=== PATIENT | male | born 1975 | race Caucasian/White ===

== ENCOUNTER → 2017-05-12 | Outpatient (CLI) | payer SELFPAY ==
[~2017-05-12] MED LIST: ALEVE220 MG PO; B12,B-12,B 12500 MC1 PO; DOXYCYCLINE100 M3 PO; LEVAQUIN750 MG PO; LISINOPRIL5 MG PO; LOPRESSOR25 MG PO; MOTRIN800 MG PO; NATURE'S BLEND F1 MG PO; PREDNICOT20 MG PO; PROVENTIL0.09 MG/AC IH; SEPTRA DS 800 M1 TAB PO; ZITHROMAX250 MG PO
== END | disposition home or self-care (01) ==
LOC: RESCLI 09:38
DX: Z20.818 Contact with and (suspected) exposure to other bacterial communicable diseases (principal)

== ENCOUNTER → 2018-07-19 | Outpatient (CLI) | payer SELFPAY ==
--- NOTE | ~2018-07-19 | EKG ---
[place], [place] ELECTROCARDIOGRAM REPORT NAME: TIM CINTRON UNIT #: [id number] ROOM: DOCTOR: EPIPHANY DRAFT REPORT BIRTHDATE: [birth year] [facility] Test Date: 2018-07-19 Test Time: 10:35:52 Pat Name: TIM CINTRON Department: Room: Gender: M Real Property Appraiser: Zakiya Faria : 1975 Requested By: JOSESITO LOJA Order Number: [id number] Reading MD: Josesito Loja MD Measurements Intervals Downs Rate: 77 P: 41 DC: 153 QRS: 66 QRSD: 97 T: 67 QT: 385 QTc: 436 Interpretive Statements Sinus rhythm Minimal ST depression, inferior leads Borderline ST elevation, anterior leads Electronically Signed On 07-19-2018 7:48:41 PDT by Josesito Loja MD CM:EKGRPT:ELECTROCARDIOGRAM REPORT [id number] JOSESITO LOJA MD EPIPHANY DRAFT REPORT JOSESITO LOJA MD
== END | disposition home or self-care (01) ==
LOC: RESCLI 00:54
DX: I10 Essential (primary) hypertension (principal); J30.2 Other seasonal allergic rhinitis; M94.0 Chondrocostal junction syndrome [Tietze]; R94.31 Abnormal electrocardiogram [ECG] [EKG]; Z71.6 Tobacco abuse counseling; Z79.899 Other long term (current) drug therapy; Z79.82 Long term (current) use of aspirin; Z88.8 Allergy status to other drugs, medicaments and biological substances

== ENCOUNTER → 2018-07-28 | Outpatient (CLI) | payer SELFPAY | END | disposition home or self-care (01) | LOC: CARD 07-27 09:00 | DX: R07.89 Other chest pain (principal) ==

== ENCOUNTER → 2018-09-07 | Outpatient (CLI) | payer SELFPAY | END | disposition home or self-care (01) | LOC: RESCLI 13:47 | DX: I10 Essential (primary) hypertension (principal); J30.2 Other seasonal allergic rhinitis; R07.89 Other chest pain; M94.0 Chondrocostal junction syndrome [Tietze]; R94.31 Abnormal electrocardiogram [ECG] [EKG]; T14.8XXA Other injury of unspecified body region, initial encounter; F17.200 Nicotine dependence, unspecified, uncomplicated; Z71.6 Tobacco abuse counseling; Z79.899 Other long term (current) drug therapy; Z79.82 Long term (current) use of aspirin; Z88.8 Allergy status to other drugs, medicaments and biological substances; X58.XXXA Exposure to other specified factors, initial encounter; Y93.89 Activity, other specified; Y92.89 Other specified places as the place of occurrence of the external cause; Y99.8 Other external cause status ==

== ENCOUNTER → 2018-10-27 | Outpatient (CLI) | payer SELFPAY | END | disposition home or self-care (01) | LOC: RESCLI 09:16 | DX: H61.23 Impacted cerumen, bilateral (principal); I10 Essential (primary) hypertension; Z88.8 Allergy status to other drugs, medicaments and biological substances; Z79.899 Other long term (current) drug therapy ==

== ENCOUNTER → 2019-12-26 | Outpatient (CLI) | payer SELFPAY ==
[~2019-12-26] MED LIST changes: +HYDR12.5C PO; +LISINOPRIL10 M1 PO; +LISINOPRIL20 MG PO; -LISINOPRIL5 MG PO; +TYLENOL EXTRA500 MG PO
== END | disposition home or self-care (01) ==
LOC: RESCLI 10:09
DX: R68.89 Other general symptoms and signs (principal); Z79.899 Other long term (current) drug therapy; Z88.8 Allergy status to other drugs, medicaments and biological substances

== ENCOUNTER 2019-12-29 07:55 | Inpatient (IN) | payer SELFPAY ==
[2019-12-29] VITALS (12 sets, daily range): BP systolic 130–191; BP diastolic 79–100
[~2019-12-29 07:55] MED LIST changes: -HYDR12.5C PO; -LISINOPRIL10 M1 PO; -TYLENOL EXTRA500 MG PO
[2019-12-29 08:47] LABS: BASO % 0.3 % (0.0-1.0); EOS # 0.3 10*3/uL (0.0-0.4); EOS % 2.1 % (1.0-4.0); LYMPH # 2.1 10*3/uL (1.3-4.4); LYMPH % 16.5 % (27.0-41.0); MEAN CELL VOLUME 86.5 fl (80.0-94.0); MEAN CORPUSCULAR HGB 31.6 pg (27.0-31.0); MEAN CORPUSCULAR HGB CONC 36.5 g/dl (33.0-37.0); MEAN PLATELET VOLUME 9.6 fl (9.6-12.3); MONO # 0.8 10*3/uL (0.1-1.0); MONO % 6.3 % (3.0-9.0); NEUT # 9.4 10*3/uL (2.3-7.9); NEUT % 74.5 % (47.0-73.0); PLATELET COUNT AUTOMATED 228 10*3/uL (130-400); RED BLOOD COUNT 6.01 10*6/uL (4.50-5.90); RED CELL DISTRI WIDTH 12.8 % (0-14.5); WHITE BLOOD COUNT 12.6 10*3/uL (4.8-10.8)
[2019-12-29 08:55] LABS: ALBUMIN 3.6 gm/dl (3.1-4.5); ALKALINE PHOSPHATASE 99 U/L (45-117); BUN 10 mg/dl (7-24); CHLORIDE 106 mmol/L (98-107); CREATININE 0.99 mg/dL (0.70-1.30); POTASSIUM 3.6 mmol/L (3.5-5.1); SGOT/AST 20 IU/L (3-35); SGPT/ALT 38 U/L (12-78); SODIUM 137 mmol/L (136-145); TOTAL PROTEIN 7.4 gm/dL (6.4-8.2)
[2019-12-29 09:19] LABS: BILIRUBIN NEGATIVE (NEGATIVE); BLOOD NEGATIVE (NEGATIVE); CLARITY CLEAR (CLEAR); COLOR YELLOW (YELLOW); GLUCOSE NEGATIVE (NEGATIVE); KETONE NEGATIVE (NEGATIVE); LEUKO ESTERASE NEGATIVE (NEGATIVE); NITRITE NEGATIVE (NEGATIVE); UROBILINOGEN 0.2 E.U./dl (0.2-1.0)
--- NOTE | 2019-12-29 15:45 | NUR ---
A 44, admitted to 5E, under the services of FIDELIA Arias DO with a diagnosis of POST OP SBO. Chief complaint is C/O NAUSEA VOMITING AND DIARRHEA AT HOME WORSENING OVER THE PAST 2 DAYS. PT CAME TO ER TODAY AND WAS TAKEN TO OR THEN ADMITTED POST OP. Patient arrived via stretcher from ER. Monitor applied. Initial assessment completed. Vital signs taken and recorded. See assessment for past medical history, medications and allergies. Patient and/or family oriented to unit. [facility] visitation policy reviewed. VALENTIN DAVE
--- NOTE | 2019-12-29 16:38 | NUR ---
Spoke with pt significant other regarding home meds. Called both [facility] and they did not have any current meds for pt. All were outdated. [facility] pharmacy only had a record that was sent to me for tamiflu. Lula states that he takes lisinopril for sure but she will call when she gets home for other meds if any.
--- NOTE | 2019-12-29 17:30 | NUR ---
Suction wall unit changed at this time due to LIS not functioning properly. New unit working as it should.
--- NOTE | 2019-12-29 20:00 | NUR ---
PRN IV MORPHINE GIVEN AT THIS TIME FOR 5/10 ABDOMINAL PAIN FROM SURGERY AND MIDLINE SURGICAL INCISION. PATIENT A&O X3. CALL LIGHT WITHIN REACH. FAMILY AT BEDSIDE. WILL CONTINUE TO MONITOR.
--- NOTE | 2019-12-29 21:00 | NUR ---
PATIENT STATED THAT PAIN WAS NOW A 3/10 AFTER PRN IV MORPHINE. A&O X3, CALL LIGHT WITHIN REACH, WILL CONTINUE TO MONITOR. FAMILY AT BEDSIDE.
--- NOTE | 2019-12-29 21:40 | NUR ---
24 HOUR CHART CHECK COMPLETE
[2019-12-30] VITALS: BP 134/87
--- NOTE | 2019-12-30 00:05 | NUR ---
PRN IV MORPHINE GIVEN AT THIS TIME FOR 4/10 ABDOMINAL PAIN FROM SURGERY. A&O X3, CALL LIGHT WITHIN REACH WILL CONTINUE TO MONITOR.
--- NOTE | 2019-12-30 01:00 | NUR ---
PATIENT STATED THAT PAIN WAS NOW TOLERABLE AT A 1-2 AFTER PRN IV MORPHINE. A&O X3, CALL LIGHT WITHIN REACH WILL CONTINUE TO MONITOR.
--- NOTE | 2019-12-30 04:14 | NUR ---
PRN IV MORPHINE GIVEN AT THIS TIME FOR 4/10 ABDOMINAL PAIN. PATIENT A&O X3, CALL LIGHT WITHIN REACH.
--- NOTE | 2019-12-30 05:15 | NUR ---
PATIENT STATED THAT PAIN WAS NOW A 1-2 OUT OF TEN ON THE PAIN SCALE AFTER PRN IV MORPINE GIVEN. A&O X3 AT THIS TIME, CALL LIGHT WITHIN REACH.
[2019-12-30 07:09] LABS: BASO % 0.2 % (0.0-1.0); EOS # 0.1 10*3/uL (0.0-0.4); EOS % 0.7 % (1.0-4.0); HEMATOCRIT 48.5 % (42.0-52.0); HEMOGLOBIN 17.2 g/dl (14.0-18.0); LYMPH # 2.5 10*3/uL (1.3-4.4); LYMPH % 21.2 % (27.0-41.0); MEAN CELL VOLUME 89.2 fl (80.0-94.0); MEAN CORPUSCULAR HGB 31.6 pg (27.0-31.0); MEAN CORPUSCULAR HGB CONC 35.5 g/dl (33.0-37.0); MONO # 1.4 10*3/uL (0.1-1.0); MONO % 11.9 % (3.0-9.0); NEUT # 7.9 10*3/uL (2.3-7.9); NEUT % 65.7 % (47.0-73.0); PLATELET COUNT AUTOMATED 255 10*3/uL (130-400); RED BLOOD COUNT 5.44 10*6/uL (4.50-5.90); RED CELL DISTRI WIDTH 13.5 % (0-14.5)
[2019-12-30 07:35] LABS: ALBUMIN 3.1 gm/dl (3.1-4.5); BUN 16 mg/dl (7-24); CHLORIDE 108 mmol/L (98-107); CREATININE 0.99 mg/dL (0.70-1.30); POTASSIUM 3.6 mmol/L (3.5-5.1); SGOT/AST 19 IU/L (3-35); SGPT/ALT 33 U/L (12-78); SODIUM 142 mmol/L (136-145)
[2019-12-30 07:43] LABS: ALKALINE PHOSPHATASE 76 U/L (45-117); CHOLESTEROL 105 mg/dL (<200); FREE T4 1.32 ng/dl (0.76-1.46); HDL CHOLESTEROL 30 mg/dl (40-60); LDL CHOLESTEROL 59 mg/dL (9-159); THYROID STIM HORMONE (HS) 0.338 uIU/ml (0.358-4.75); TOTAL PROTEIN 6.4 gm/dL (6.4-8.2); TRIGLYCERIDES 80 mg/dl (<150); VLDL CHOLESTEROL 16 mg/dL (6-40)
[2019-12-30 07:53] LABS: VITAMIN D, 25-HYDROXY 13.4 ng/mL (30-100)
[2019-12-30 08:00] VITALS: BP 150/71
--- NOTE | 2019-12-30 09:15 | NUR ---
MS DECREASED PAIN TO 4/10 AT THIS TIME. WILL CONT TO MONITOR. CALL LIGHT IN REACH.
--- NOTE | 2019-12-30 10:16 | NUR ---
IV DILAUDID GIVEN AT THIS TIME FOR C/O PAIN 04/03. WILL CONT TO MONITOR. CALL LIGHT IN REACH.
--- NOTE | 2019-12-30 11:16 | NUR ---
PT RESTING QUIETLY AT THIS TIME WITH EYES CLOSED, PRN PAIN MEDS EFF.
[2019-12-30 12:00] VITALS: BP 154/90
[2019-12-30 16:00] VITALS: BP 141/90
[2019-12-30 20:00] VITALS: BP 151/90
--- NOTE | 2019-12-30 20:45 | NUR ---
CONTACTED AT THIS TIME PATIENT IS REQUESTING THAT THE NG TUBE BE REMOVED PATIENT STATED "I'M JUST DONE WITH IT AND FEEL THAT I AM ASPIRATING MY OWN SALIVA", STATED "DEFINIATELY NOT", HE WAS ADVISED THAT THE PATIENT HAD HAD >900CC OUT ON DAYSHIFT AND THAT HE HAD ALREADY HAD 200 OUT ON THIS SHIFT. PATIENT AND FAMILY NOTIFIED OF ORDERS FOR THE NG TO REMAIN AND ORDERED CEPACOL LOZENGER TO EASE THE THROAT DISCOMFORT. PATIENT AND FAMILY UNDERSTANDS AT THIS TIME.
--- NOTE | 2019-12-30 22:40 | NUR ---
PRN IV DILAUDID GIVEN AT THIS TIME FOR 4/10 ABDOMINAL AND THROAT PAIN, A&O X3, CALL LIGHT WITHIN REACH, FAMILY AT BEDSIDE. WILL CONTINUE TO MONITOR.
--- NOTE | 2019-12-30 23:20 | NUR ---
PATIENT STATED THAT PAIN WAS IMPROVED AND HE IS RESTING MORE COMFORTABLLY. A&O X3. CALL LIGHT WITHIN REACH, FAMILY AT BEDSIDE.
[2019-12-30] MEDS ORDERED: LISINOPRIL10 M1 PO (23:42)
[2019-12-30] MEDS ORDERED: HYDR12.5C PO (23:43)
[2019-12-31] VITALS: BP 153/95
[2019-12-31 06:25] LABS: BASO % 0.3 % (0.0-1.0); EOS # 0.2 10*3/uL (0.0-0.4); HEMATOCRIT 46.8 % (42.0-52.0); HEMOGLOBIN 16.3 g/dl (14.0-18.0); LYMPH # 2.2 10*3/uL (1.3-4.4); LYMPH % 19.6 % (27.0-41.0); MEAN CELL VOLUME 90.7 fl (80.0-94.0); MEAN CORPUSCULAR HGB 31.6 pg (27.0-31.0); MEAN CORPUSCULAR HGB CONC 34.8 g/dl (33.0-37.0); MEAN PLATELET VOLUME 9.5 fl (9.6-12.3); MONO % 8.8 % (3.0-9.0); NEUT # 7.6 10*3/uL (2.3-7.9); NEUT % 68.8 % (47.0-73.0); PLATELET COUNT AUTOMATED 256 10*3/uL (130-400); RED BLOOD COUNT 5.16 10*6/uL (4.50-5.90); RED CELL DISTRI WIDTH 13.5 % (0-14.5)
[2019-12-31 06:52] LABS: BUN 19 mg/dl (7-24); CHLORIDE 109 mmol/L (98-107); CREATININE 0.82 mg/dL (0.70-1.30); POTASSIUM 3.6 mmol/L (3.5-5.1); SODIUM 145 mmol/L (136-145)
[2019-12-31 08:00] VITALS: BP 153/80
[2019-12-31 12:00] VITALS: BP 162/80
[2019-12-31 16:00] VITALS: BP 158/84
--- NOTE | 2019-12-31 19:41 | NUR ---
48 hour chart check complete
[2019-12-31 20:00] VITALS: BP 165/95
[2020-01-01] VITALS: BP 148/86
--- NOTE | 2020-01-01 06:12 | NUR ---
TIM CINTRON [id number] Please refer to the physician's history and physical for past medical history, comorbid conditions, and allergies. Diagnosis: SMALL BOWEL OBSTRUCTION Gavino Score: 19,LOW OR NO RISK WOUND DESCRIPTIONS: Wound Number: 1 Dressing intact to midline umbilical region. Scant amount of strikethrough drainage noted to distal end of dressing at time of assessmnet. Patient asking if incision looks okay and this nurse stated that I am unable to view incision since dressing is intact. Patient states dressing was removed and was told to leave it open to air by Dr. Gregory when asked how new dressing was appilied he stated that the nurses did it. Per Meenu RN she states that his girlfriend changed the dressing on wednesday12/31/19. Wound Number: 2 Left lower quadrant dresing intact at time of assessment. Appears to be 1 steristrip as well as 1 staple at time of assessment. No strikethrough drainage noted at this time. Patient denies pain at time of assessment. Surface the patient is resting on: Isoflex SKIN PREVENTION RECOMMENDATION: 1. Pressure redistribution support surface as appropriate 2. Elevate heels 3. Remove boots/TEDS every shift and reapply 4. Head of bed 30 degrees as tolerated 5. Assess nutrition and hydration 6. Manage moisture 7. Avoid the use of containment devices while in bed 8. Use absorptive products on surfaces limit layers of linens on bed 9. Turn and reposition every 1-2 hours in bed and every 1 hour in chair as tolerated 10. Weight shifts every 15 minutes while up in chair 11. Offloading with pillows or device to keep heels elevated off bed 12. Monitor skin at least every shift 13. Inspect under medical devices twice a day WOUND TREATMENT RECOMMENDATIONS: Patient states he will follow up with Dr. Gregory in his office upon discharge. Await wound care orders per Dr. Gregory since he performed the surgery on 12/29/19.
[2020-01-01 07:04] LABS: BUN 18 mg/dl (7-24); CHLORIDE 110 mmol/L (98-107); CREATININE 0.72 mg/dL (0.70-1.30); PHOSPHOROUS 2.3 mg/dL (2.5-4.9); POTASSIUM 3.4 mmol/L (3.5-5.1); SODIUM 146 mmol/L (136-145)
[2020-01-01 08:00] VITALS: BP 184/80
--- NOTE | 2020-01-01 08:13 | NUR ---
PATIENT RESTING QUIETLY IN BED. NO DISTRESS NOTED. RESPIRATIONS EASY, REGULAR. NG TUBE INTACT CONNECTED TO LIS PER ORDER. LARGE AMOUNT OF DARK BROWN DRAINAGE IN CONTAINER. WILL MONITOR OUTPUT. PT EAGER FOR NG TUBE TO BE DISCONTINUED. WAITING FOR TO SEE PATIENT THIS AM. HYPOACTIVE BS X4 QUADS. PT STATES HE IS PASSING GAS. WILL CONTINUE TO MONITOR. CALL LIGHT WITHIN REACH.
--- NOTE | 2020-01-01 09:00 | NUR ---
Corn Sheller in to talk to patient. Patient states lives at home with friend. There are 2 steps in the home. Physician: [facility] Pharmacy: [facility] services: none Patient's level of ADLs: INDEPENDENT Patient has working utilities: all working DME: none Follow-up physician's appointment after d/c: will be made by hospitalist nurse director upon discharge Does patient want to access PORTAL?: no Discharge plan discussed with patient, he states he lives at home with friend, he is independent in adls and ambulation, works, drives he states he will return home when medically stable and denies any home needs, case management will follow. EDUARD GRAMAJO
--- NOTE | 2020-01-01 09:00 | NUR ---
THIS NURSE SPOKE WITH REGARDING PATIENT'S REQUEST FOR NG TUBE TO BE TAKEN OUT. PER , NG TUBE CAN BE REMOVED BUT PATIENT MUST REMAIN NPO. IF PATIENT HAS NAUSEA/VOMITING, NG TUBE MUST BE INSERTED AGAIN. WILL LET THE PATIENT KNOW.
--- NOTE | 2020-01-01 09:15 | NUR ---
PATIENT AGREEABLE TO KEEP NG TUBE IN. WILL CONTINUE TO MONITOR OUTPUT.
--- NOTE | 2020-01-01 10:30 | NUR ---
IN TO SEE PATIENT AND NOTIFIED REGARDING BLOOD PRESSURE THIS AM.
--- NOTE | 2020-01-01 11:29 | NUR ---
Nutritonal Support Services Note: Pt with Dx of SBO. Has NGT to LIS. Remains NPO at this time. Surgical incision noted. No height or weight currently recorded. Will follow for advancement of po intake. Mariely Ahumada Rdn Ld
--- NOTE | 2020-01-01 11:45 | NUR ---
NG TUBE REMOVED PER ORDER. PATIENT TOLERATED WELL. CLEAR LIQUIDS INITIATED AT THIS TIME PER ORDER. WILL MONITOR.
[2020-01-01 12:00] VITALS: BP 190/88
--- NOTE | 2020-01-01 12:36 | NUR ---
NOTIFIED REGARDING ELEVATED BP. NEW ORDERS RECEIVED.
--- NOTE | 2020-01-01 12:47 | NUR ---
PT REFUSED IV LABETALOL PER ORDER. PT REQUESTED HOME MEDS TO BE RESTARTED. NOTIFIED AND OKAY FOR PATIENTS HOME MEDS TO BE RESTARTED.
--- NOTE | 2020-01-01 14:18 | NUR ---
PT UP AMBULATING IN HALLWAY.
--- NOTE | 2020-01-01 15:37 | NUR ---
IN TO SEE PATIENT.
[2020-01-01 16:00] VITALS: BP 184/86
[2020-01-01 17:03] VITALS: BP 148/98
--- NOTE | 2020-01-01 19:30 | NUR ---
AWAKE, SITTING UP IN BED WATCHING TV WITH SIGNIFICANT OTHER PRESENT AT BEDSIDE. RESPIRATIONS EASY. LUNGS DIMINISHED, CLEAR. PULSE OX 98% RA. ABD DISTENDED WITH HYPOACTIVE BOWEL SOUNDS. +FLATUS, BM 12/31. MIDLINE DRESSING INTACT. IV FLUIDS INFUSING PER ORDER. CALL LIGHT WITHIN REACH. NO VOICED COMPLAINTS
[2020-01-01 20:00] VITALS: BP 168/92
--- NOTE | 2020-01-01 22:22 | NUR ---
24 HR chart check completed.
[2020-01-02] VITALS: BP 169/97
--- NOTE | 2020-01-02 | NUR ---
SLEEPING. NO ACUTE DISTRESS NOTED. RESPIRATIONS EASY. VSS. IV FLUIDS INFUSING PER ORDER. CALL LIGHT WITHIN REACH. NO VOICED COMPLAINTS
--- NOTE | 2020-01-02 03:00 | NUR ---
SLEEPING. IV FLUIDS MAINTAINED
[2020-01-02 04:00] VITALS: BP 150/82
--- NOTE | 2020-01-02 06:00 | NUR ---
SLEPT THROUGHOUT NIGHT WITH NO DISTRESS NOTED. RESPIRATIONS EASY. MIDLINE INCISION MAINTAINED DRY AND INTACT. IV FLUIDS INFUSING PER ORDER. CALL LIGHT WITHIN REACH. NO VOICED COMPLAINTS THIS SHIFT
[2020-01-02 06:26] LABS: BASO # 0.1 10*3/uL (0.0-0.1); BASO % 0.5 % (0.0-1.0); EOS # 0.4 10*3/uL (0.0-0.4); EOS % 3.9 % (1.0-4.0); HEMATOCRIT 43.9 % (42.0-52.0); HEMOGLOBIN 15.8 g/dl (14.0-18.0); LYMPH # 2.8 10*3/uL (1.3-4.4); LYMPH % 28.5 % (27.0-41.0); MEAN CELL VOLUME 88.9 fl (80.0-94.0); MEAN PLATELET VOLUME 9.6 fl (9.6-12.3); MONO # 0.8 10*3/uL (0.1-1.0); MONO % 8.1 % (3.0-9.0); NEUT # 5.8 10*3/uL (2.3-7.9); NEUT % 58.7 % (47.0-73.0); PLATELET COUNT AUTOMATED 275 10*3/uL (130-400); RED BLOOD COUNT 4.94 10*6/uL (4.50-5.90); RED CELL DISTRI WIDTH 13.1 % (0-14.5); WHITE BLOOD COUNT 9.8 10*3/uL (4.8-10.8)
[2020-01-02 06:48] LABS: BUN 12 mg/dl (7-24); CHLORIDE 103 mmol/L (98-107); CREATININE 0.66 mg/dL (0.70-1.30); POTASSIUM 2.9 mmol/L (3.5-5.1); SODIUM 138 mmol/L (136-145)
[2020-01-02 08:00] VITALS: BP 169/108
[2020-01-02 09:00] VITALS: BP 152/84
--- NOTE | 2020-01-02 09:00 | NUR ---
PT RESTING IN BED. RESP-EASY AND REGULAR. IVF INFUSING WITH NO PROBLEM. NO C/O AT THIS TIME ONLY WHEN COUGHING PER PT. CALL LIGHT IN REACH. SEE SHIFT ASSESSMENT.
--- NOTE | 2020-01-02 09:00 | NUR ---
case management visits with patient, he states he will return home when medically stable, patient denies any home needs, case management will follow
--- NOTE | 2020-01-02 09:20 | NUR ---
AMBULATORY IN HALLWAY.
--- NOTE | 2020-01-02 10:25 | NUR ---
PT RESTING IN BED. RESP-EASY AND REGULAR. NO C/O AT THIS TIME. CALL LIGHT IN REACH.
[2020-01-02] MEDS ORDERED: TYLENOL EXTRA500 MG PO (11:00)
--- NOTE | 2020-01-02 11:04 | NUR ---
Nutritional Support Services Note: Pt's diet was advanced to regular. Tolerating well. IV fluids is ordered. Monitor for continued tolerance to diet. Will follow if needed. BROCK Beck photo intern
--- NOTE | 2020-01-02 13:40 | NUR ---
Discharge instructions reviewed with patient/family. Patient receptive and verbalizes understanding. Follow-up care arranged. Written instructions given to patient/family. HEPLOCK REMOVED 2X2 APPLIED. PT AMBULATORY OFF FLOOR. DRESSING CHANGED AND PICTURE TAKEN. BRIAN NGUYEN
== END 2020-01-02 13:40 | disposition home or self-care (01) | DRG 336 ==
LOC: ED 07:55 → EDHOLD 10:15 → 5E 10:15
PROVIDERS: Emergency Medicine; Family Medicine; Student in an Organized Health Care Education/Training Program; Surgery; ADMIT Emergency Medicine
PROC: 0DNB0ZZ Release Ileum, Open Approach (ICD-10-PCS; principal; 2019-12-29)
PROC: 0DJD4ZZ Inspection of Lower Intestinal Tract, Percutaneous Endoscopic Approach (ICD-10-PCS; principal; 2019-12-29)
DX: K56.600 Partial intestinal obstruction, unspecified as to cause (principal); R65.10 Systemic inflammatory response syndrome (SIRS) of non-infectious origin without acute organ dysfunction; D72.829 Elevated white blood cell count, unspecified; E80.6 Other disorders of bilirubin metabolism; I10 Essential (primary) hypertension; E78.5 Hyperlipidemia, unspecified; F17.210 Nicotine dependence, cigarettes, uncomplicated; E87.6 Hypokalemia; E55.9 Vitamin D deficiency, unspecified; E53.8 Deficiency of other specified B group vitamins; E66.9 Obesity, unspecified; Z82.49 Family history of ischemic heart disease and other diseases of the circulatory system; Z82.3 Family history of stroke; Z88.5 Allergy status to narcotic agent

== ENCOUNTER → 2020-02-29 | Day surgery (SDC) | payer SELFPAY ==
[~2020-02-29] VITALS: Ht 175.2 cm; Wt 86.2 kg
[~2020-02-29] MED LIST changes: +HYDR12.5C PO; +LISINOPRIL10 M1 PO; +PERCOCET 5-3251 EACH PO; +TYLENOL EXTRA500 MG PO
[2020-02-29 11:10] VITALS: BP 156/95
[2020-02-29 11:17] LABS: HEMATOCRIT 47.4 % (42.0-52.0); MEAN CELL VOLUME 88.3 fl (80.0-94.0); MEAN CORPUSCULAR HGB 31.7 pg (27.0-31.0); MEAN CORPUSCULAR HGB CONC 35.9 g/dl (33.0-37.0); MEAN PLATELET VOLUME 9.7 fl (9.6-12.3); PLATELET COUNT AUTOMATED 237 10*3/uL (130-400); RED BLOOD COUNT 5.37 10*6/uL (4.50-5.90); RED CELL DISTRI WIDTH 12.9 % (0-14.5); WHITE BLOOD COUNT 14.1 10*3/uL (4.8-10.8)
[2020-02-29 11:30] LABS: ALBUMIN 3.3 gm/dl (3.1-4.5); ALKALINE PHOSPHATASE 126 U/L (45-117); BUN 9 mg/dl (7-24); CHLORIDE 102 mmol/L (98-107); CREATININE 0.75 mg/dL (0.70-1.30); POTASSIUM 3.5 mmol/L (3.5-5.1); SGOT/AST 15 IU/L (3-35); SGPT/ALT 28 U/L (12-78); SODIUM 137 mmol/L (136-145); TOTAL PROTEIN 7.4 gm/dL (6.4-8.2)
[2020-02-29 11:39] LABS: TOTAL CELLS COUNTED 100 #CELLS
[2020-02-29 11:40] LABS: PLATELET SUFFICIENCY NORMAL (NORMAL)
[2020-02-29 12:15] VITALS: BP 152/95
[2020-02-29 12:28] VITALS: BP 149/96
[2020-02-29 12:46] VITALS: BP 153/88
== END | disposition home or self-care (01) ==
LOC: ED 10:05 → SDC 11:47
PROVIDERS: Nurse Practitioner Family
DX: L02.413 Cutaneous abscess of right upper limb (principal); I10 Essential (primary) hypertension; J45.909 Unspecified asthma, uncomplicated; Z87.891 Personal history of nicotine dependence

== ENCOUNTER → 2020-11-06 | Outpatient (CLI) | payer SELFPAY | END | disposition home or self-care (01) | LOC: RESCLI 00:37 | PROVIDERS: ATTEND Family Medicine | DX: I10 Essential (primary) hypertension (principal); R21 Rash and other nonspecific skin eruption; Z79.899 Other long term (current) drug therapy; Z72.0 Tobacco use; Z86.14 Personal history of Methicillin resistant Staphylococcus aureus infection; Z88.8 Allergy status to other drugs, medicaments and biological substances ==

== ENCOUNTER → 2021-02-10 | Outpatient (CLI) | payer SELFPAY ==
[2021-02-10 18:58] LABS: BUN 11 mg/dl (7-24); CHLORIDE 107 mmol/L (98-107); CREATININE 0.99 mg/dL (0.70-1.30); POTASSIUM 3.7 mmol/L (3.5-5.1); SODIUM 140 mmol/L (136-145)
== END | disposition home or self-care (01) ==
LOC: LAB 18:00
PROVIDERS: ATTEND Internal Medicine Nephrology
DX: I10 Essential (primary) hypertension (principal)

== ENCOUNTER → 2021-03-06 | Outpatient (CLI) | payer SELFPAY | END | disposition home or self-care (01) | LOC: RESCLI 02:02 | PROVIDERS: ATTEND Internal Medicine | DX: I10 Essential (primary) hypertension (principal); R29.818 Other symptoms and signs involving the nervous system; L72.3 Sebaceous cyst; E66.9 Obesity, unspecified; K21.9 Gastro-esophageal reflux disease without esophagitis; Z72.0 Tobacco use; Z88.6 Allergy status to analgesic agent; Z79.82 Long term (current) use of aspirin; Z79.899 Other long term (current) drug therapy; Z72.89 Other problems related to lifestyle ==

== ENCOUNTER → 2021-07-28 | Outpatient (CLI) | payer OTHER | END | disposition home or self-care (01) | LOC: COVID19 17:33 | PROVIDERS: ATTEND Internal Medicine | DX: U07.1 COVID-19 (principal) ==